=== PATIENT | male | born 1985 | race Hispanic/Latino ===

== ENCOUNTER 2022-10-16 00:44 | Emergency (ER) | payer OTHER ==
[~2022-10-16] VITALS: Ht 182.9 cm; Wt 113.4 kg
== END 2022-10-16 02:49 | disposition home or self-care (01) ==
LOC: ED 00:44
DX: S06.0XAA Concussion with loss of consciousness status unknown, initial encounter (principal); M25.561 Pain in right knee; M54.50 Low back pain, unspecified; W17.89XA Other fall from one level to another, initial encounter
CPT/HCPCS: 70450; 72100; 73560; 99284-25; A9270